=== PATIENT | female | born 1995 | race American Indian/Alaskan Native ===

== ENCOUNTER 2018-11-04 23:56 | Emergency (ER) | payer OTHER ==
--- NOTE | 2018-11-05 04:03 | XRay Report ---
PROCEDURE: XR CHEST ROUTINE 2V TECHNIQUE: PA and lateral views of the chest were submitted. HISTORY: chestpain COMPARISONS: None FINDINGS: The lungs are clear. The heart size and vascularity appear normal. The bones and soft tissues appear normal. IMPRESSION: Within normal limits.. This document is electronically signed by Darius Christina MD., November 05 2018 04:01:00 AM ET
[2018-11-05] MEDS ORDERED: IBUPROFEN PO ONE (04:09)
--- NOTE | 2018-11-05 04:13 | Emergency Department Report ---
ED General Adult HPI - General Chief complaint: Chest Pain Stated complaint: CHEST PAIN, NUMBNESS LEFT ARM Time Seen by Provider: 11/05/18 03:53 Source: patient Mode of arrival: Ambulatory Limitations: No Limitations - History of Present Illness Initial comments: 22-year-old -[place]i female presents to the emergency room for intermittent chest pain in left arm numbness and tingling. Patient reports that laying on the left arm makes it feel numb. Patient denies any trauma. She reports aspirin makes it better and nothing makes it worse. She denies any cough. Ports that the pain is sharp and comes and goes. She denies any smoking no wheeze no drugs alcohol use occasionally. No past medical history currently takes no medications on a daily basis and has no known drug allergies -: week(s) (1) Location: chest, left Radiation: distal Severity scale (0 -10): 8 Quality: sharp Consistency: intermittent Improves with: medication (asa) Associated Symptoms: denies: cough, diaphoresis, fever/chills, nausea/vomiting Treatments Prior to Arrival: none - Related Data Previous Rx's Medication Instructions Recorded Last Taken Type Nitrofurantoin [place]/M-Cryst 100 mg PO Q12HR #14 capsule 10/16/16 Unknown Rx [Macrobid CAP] Ibuprofen [Motrin 600 MG tab] 600 mg PO Q8H #21 tablet 11/05/18 Unknown Rx Allergies Allergy/AdvReac Type Severity Reaction Status Date / Time No Known Allergies Allergy Unverified 10/16/16 17:30 ED Review of Systems ROS: Stated complaint: CHEST PAIN, NUMBNESS LEFT ARM Other details as noted in HPI ED Past Medical Hx - Past Medical History Previous Medical History?: No - Surgical History Past Surgical History?: Yes - Social History Smoking Status: Never Smoker Substance Use Type: None - Medications Home Medications: Home Medications Medication Instructions Recorded Confirmed Last Taken Type Nitrofurantoin [place]/M-Cryst 100 mg PO Q12HR #14 capsule 10/16/16 Unknown Rx [Macrobid CAP] Ibuprofen [Motrin 600 MG tab] 600 mg PO Q8H #21 tablet 11/05/18 Unknown Rx ED Physical Exam - General Limitations: No Limitations General appearance: alert, in no apparent distress - Head Head exam: Present: atraumatic, normocephalic - Eye Eye exam: Present: normal appearance - ENT ENT exam: Present: mucous membranes moist - Neck Neck exam: Present: normal inspection - Respiratory Respiratory exam: Present: normal lung sounds bilaterally, chest wall tenderness. Absent: respiratory distress - GI/Abdominal GI/Abdominal exam: Present: soft, normal bowel sounds - Neurological Exam Neurological exam: Present: alert, oriented X3 - Psychiatric Psychiatric exam: Present: normal affect, normal mood - Skin Skin exam: Present: warm, dry, intact, normal color. Absent: rash ED Course Vital Signs 11/05/18 11/05/18 00:00 04:59 Temperature 98.2 F 98.1 F Pulse Rate 101 H 80 Respiratory 18 18 Rate Blood Pressure 116/77 Blood Pressure 132/75 [Left] O2 Sat by Pulse 96 98 Oximetry ED Medical Decision Making - Radiology Data Radiology results: report reviewed Patient: CADEN TIJERINA MR#: [id number] : 1995 Acct:[id number] Age/Sex: 22 / F ADM Date: 11/04/18 Loc: ED Attending Dr: Ordering Physician: ED MD MARVA Date of Service: 11/05/18 Procedure(s): XR chest routine 2V Accession Number(s): [id number] cc: ED MD MARVA Fluoro Time In Minutes: PROCEDURE: XR CHEST ROUTINE 2V TECHNIQUE: PA and lateral views of the chest were submitted. HISTORY: chestpain COMPARISONS: None FINDINGS: The lungs are clear. The heart size and vascularity appear normal. The bones and soft tissues appear normal. IMPRESSION: Within normal limits.. This document is electronically signed by Darius Christina MD., November 05 2018 04:01:00 AM ET Transcribed By: RB Dictated By: DARIUS CHRISTINA MD Electronically Authenticated By: DARIUS CHRISTINA MD Signed Date/Time: 11/05/18 0403 DD/ 035 TD/TT: 11/05/18356 Critical care attestation.: If time is entered above; I have spent that time in minutes in the direct care of this critically ill patient, excluding procedure time. ED Disposition Clinical Impression: Tenderness of chest wall Disposition: DC-01 TO HOME OR SELFCARE Is pt being admited?: No Does the pt Need Aspirin: No Condition: Stable Instructions: Chest Pain (ED) Additional Instructions: Please take ibuprofen for pain management. Please follow-up with the primary care provider I have listed several below for your convenience. Prescriptions: Ibuprofen [Motrin 600 MG tab] 600 mg PO Q8H #21 tablet Referrals: PRIMARY CARE, [Primary Care Provider] - 3-[address] [facility] [Provider Group] - 3-5 Days [facility] [Outside] - 3-5 Days
[2018-11-05 05:00] VITALS: BP 132/75
== END 2018-11-05 05:00 | disposition home or self-care (01) ==
LOC: ED 23:56
DX: R07.89 Other chest pain (principal)
CPT/HCPCS: 71046; 93005; 93010; 99283

== ENCOUNTER 2019-02-03 13:16 | Emergency (ER) | payer OTHER ==
[2019-02-03 13:41] VITALS: BP 116/71
--- NOTE | 2019-02-03 13:49 | Emergency Department Report ---
ED ENT HPI - General Chief complaint: Dental/Oral Stated complaint: TOOTHACHE Time Seen by Provider: 02/03/19 13:44 Source: patient Mode of arrival: Ambulatory Limitations: No Limitations - History of Present Illness Initial comments: 23 y/o female comes in for 2 day history of tooth pain. She has been taking Tylenol for pain. Has a dental appointment on Tuesday. She is aware that she has a bad tooth. MD complaint: tooth pain Onset/Timin -: days(s) Location: tooth # Severity scale (0 -10): 10 Quality: aching, sharp Consistency: constant Improves with: none Worsens with: medication Associated Symptoms: gum swelling, toothache. denies: fever - Related Data Previous Rx's Medication Instructions Recorded Last Taken Type Nitrofurantoin [place]/M-Cryst 100 mg PO Q12HR #14 capsule 10/16/16 Unknown Rx [Macrobid CAP] Amoxicillin [Trimox CAP] 500 mg PO Q8H #30 capsule 02/03/19 Unknown Rx Ibuprofen [Motrin 600 MG tab] 600 mg PO Q8H #21 tablet 02/03/19 Unknown Rx Allergies Allergy/AdvReac Type Severity Reaction Status Date / Time No Known Allergies Allergy Unverified 10/16/16 17:30 ED Dental HPI - General Chief complaint: Dental/Oral Stated complaint: TOOTHACHE Time Seen by Provider: 02/03/19 13:44 Source: patient Mode of arrival: Ambulatory Limitations: No Limitations - Related Data Previous Rx's Medication Instructions Recorded Last Taken Type Nitrofurantoin [place]/M-Cryst 100 mg PO Q12HR #14 capsule 10/16/16 Unknown Rx [Macrobid CAP] Amoxicillin [Trimox CAP] 500 mg PO Q8H #30 capsule 02/03/19 Unknown Rx Ibuprofen [Motrin 600 MG tab] 600 mg PO Q8H #21 tablet 02/03/19 Unknown Rx Allergies Allergy/AdvReac Type Severity Reaction Status Date / Time No Known Allergies Allergy Unverified 10/16/16 17:30 ED Review of Systems ROS: Stated complaint: TOOTHACHE Other details as noted in HPI Comment: All other systems reviewed and negative ED Past Medical Hx - Past Medical History Previous Medical History?: No - Surgical History Past Surgical History?: No - Social History Smoking Status: Never Smoker - Medications Home Medications: Home Medications Medication Instructions Recorded Confirmed Last Taken Type Nitrofurantoin [place]/M-Cryst 100 mg PO Q12HR #14 capsule 10/16/16 Unknown Rx [Macrobid CAP] Amoxicillin [Trimox CAP] 500 mg PO Q8H #30 capsule 02/03/19 Unknown Rx Ibuprofen [Motrin 600 MG tab] 600 mg PO Q8H #21 tablet 02/03/19 Unknown Rx ED Physical Exam - General Limitations: No Limitations General appearance: alert, in no apparent distress - Head Head exam: Present: atraumatic, normocephalic ED Course Vital Signs 02/03/19 13:40 Temperature 98.3 F Pulse Rate 91 H Respiratory 18 Rate Blood Pressure 116/71 O2 Sat by Pulse 97 Oximetry Critical care attestation.: If time is entered above; I have spent that time in minutes in the direct care of this critically ill patient, excluding procedure time. ED Disposition Clinical Impression: Pain due to dental caries Disposition: TO HOME OR SELFCARE Is pt being admited?: No Does the pt Need Aspirin: No Condition: Stable Instructions: Toothache (ED), Dental Caries (ED) Additional Instructions: complete antibiotic as prescribed pain medication as needed. Keep your appointment to your Dentist on Tuesday. Prescriptions: Ibuprofen [Motrin 600 MG tab] 600 mg PO Q8H #21 tablet Amoxicillin [Trimox CAP] 500 mg PO Q8H #30 capsule Referrals: [facility] [Outside] - 3-5 Days [facility] [Outside] - 3-5 Days [facility] [Outside] - 3-5 Days
== END 2019-02-03 13:58 | disposition home or self-care (01) ==
LOC: ED 13:16
DX: K02.9 Dental caries, unspecified (principal)
CPT/HCPCS: 99282

== ENCOUNTER 2021-08-10 14:19 | Emergency (ER) | payer SELFPAY ==
--- NOTE | 2021-08-10 17:15 | Emergency Department Report ---
ED ENT HPI - General Chief complaint: Sore Throat Stated complaint: SORE THROAT Time Seen by Provider: 08/10/21 16:19 Source: patient Mode of arrival: Ambulatory Limitations: No Limitations - History of Present Illness Initial comments: Patient is a 25-year-old female presents emergency room complaints of a sore throat that began on 08/02/2021. She reports that the discomfort in her throat worsened on 08/06/2021. She has associated pain with swallowing. She is able to tolerate liquids and her secretions. She denies any fever, nausea, vomiting, diarrhea, cough, shortness of breath. She denies any known sick contacts or recent travel. No past medical history. No allergies to medications. - Related Data Previous Rx's Medication Instructions Recorded Last Taken Type Nitrofurantoin [place]/M-Cryst 100 mg PO Q12HR #14 capsule 10/16/16 Unknown Rx [Macrobid CAP] Amoxicillin [Trimox CAP] 500 mg PO Q8H #30 capsule 02/03/19 Unknown Rx Ibuprofen [Motrin 600 MG tab] 600 mg PO Q8H #21 tablet 02/03/19 Unknown Rx Penicillin V Potassium 500 mg PO Q6HR #40 tablet 04/10/20 Unknown Rx traMADoL [Ultram 50 MG tab] 50 mg PO Q6HR PRN #12 tablet 04/10/20 Unknown Rx Naproxen 375 mg PO BID PRN #14 tablet 08/10/21 Unknown Rx Nystas/Diphen/Xyl Visc/Mylanta 30 ml MM Q4H PRN #300 ml 08/10/21 Unknown Rx [Magic Mouthwash] Prednisone [predniSONE 10 mg 10 mg PO .TAPER #1 tab.ds.pk 08/10/21 Unknown Rx (6-Day Pack, 21 Tabs)] Allergies Allergy/AdvReac Type Severity Reaction Status Date / Time No Known Allergies Allergy Unverified 10/16/16 17:30 ED Dental HPI - General Chief complaint: Sore Throat Stated complaint: SORE THROAT Time Seen by Provider: 08/10/21 16:19 Source: patient Mode of arrival: Ambulatory Limitations: No Limitations - Related Data Previous Rx's Medication Instructions Recorded Last Taken Type Nitrofurantoin [place]/M-Cryst 100 mg PO Q12HR #14 capsule 10/16/16 Unknown Rx [Macrobid CAP] Amoxicillin [Trimox CAP] 500 mg PO Q8H #30 capsule 02/03/19 Unknown Rx Ibuprofen [Motrin 600 MG tab] 600 mg PO Q8H #21 tablet 02/03/19 Unknown Rx Penicillin V Potassium 500 mg PO Q6HR #40 tablet 04/10/20 Unknown Rx traMADoL [Ultram 50 MG tab] 50 mg PO Q6HR PRN #12 tablet 04/10/20 Unknown Rx Naproxen 375 mg PO BID PRN #14 tablet 08/10/21 Unknown Rx Nystas/Diphen/Xyl Visc/Mylanta 30 ml MM Q4H PRN #300 ml 08/10/21 Unknown Rx [Magic Mouthwash] Prednisone [predniSONE 10 mg 10 mg PO .TAPER #1 tab.ds.pk 08/10/21 Unknown Rx (6-Day Pack, 21 Tabs)] Allergies Allergy/AdvReac Type Severity Reaction Status Date / Time No Known Allergies Allergy Unverified 10/16/16 17:30 ED Review of Systems ROS: Stated complaint: SORE THROAT Other details as noted in HPI Comment: All other systems reviewed and negative ED Past Medical Hx - Social History Smoking Status: Never Smoker Substance Use Type: Alcohol - Medications Home Medications: Home Medications Medication Instructions Recorded Confirmed Last Taken Type Nitrofurantoin [place]/M-Cryst 100 mg PO Q12HR #14 capsule 10/16/16 Unknown Rx [Macrobid CAP] Amoxicillin [Trimox CAP] 500 mg PO Q8H #30 capsule 02/03/19 Unknown Rx Ibuprofen [Motrin 600 MG tab] 600 mg PO Q8H #21 tablet 02/03/19 Unknown Rx Penicillin V Potassium 500 mg PO Q6HR #40 tablet 04/10/20 Unknown Rx traMADoL [Ultram 50 MG tab] 50 mg PO Q6HR PRN #12 tablet 04/10/20 Unknown Rx Naproxen 375 mg PO BID PRN #14 tablet 08/10/21 Unknown Rx Nystas/Diphen/Xyl Visc/Mylanta 30 ml MM Q4H PRN #300 ml 08/10/21 Unknown Rx [Magic Mouthwash] Prednisone [predniSONE 10 mg 10 mg PO .TAPER #1 tab.ds.pk 08/10/21 Unknown Rx (6-Day Pack, 21 Tabs)] ED Physical Exam - General Limitations: No Limitations General appearance: alert, in no apparent distress - Head Head exam: Present: atraumatic, normocephalic - Eye Eye exam: Present: normal appearance - ENT ENT exam: Present: mucous membranes moist, other (mild posterior oropharynx erythema, no tonsillar hypertrophy or exudates, uvula is midline, no uvular edema or deviation, no trismus, no tongue elevation, no muffled voice, no submandibular edema) ED Course Vital Signs 08/10/21 08/10/21 15:25 17:56 Temperature 99.6 F 98.9 F Pulse Rate 120 H 114 H Respiratory 15 18 Rate Blood Pressure 118/75 Blood Pressure 126/84 [Right] O2 Sat by Pulse 100 100 Oximetry ED Medical Decision Making - Lab Data Vital Signs 08/10/21 08/10/21 15:25 17:56 Temperature 99.6 F 98.9 F Pulse Rate 120 H 114 H Respiratory 15 18 Rate Blood Pressure 118/75 Blood Pressure 126/84 [Right] O2 Sat by Pulse 100 100 Oximetry - Medical Decision Making Patient is a 25-year-old female presents emergency room complaints of a sore throat that began on 08/02/2021. She reports that the discomfort in her throat worsened on 08/06/2021. She has associated pain with swallowing. She is able to tolerate liquids and her secretions. She denies any fever, nausea, vomiting, diarrhea, cough, shortness of breath. She denies any known sick contacts or recent travel. No past medical history. No allergies to medications. on exam: mild posterior oropharynx erythema, no tonsillar hypertrophy or exudates, uvula is midline, no uvular edema or deviation, no trismus, no tongue elevation, no muffled voice, no submandibular edema. Rapid strep was negative. No clinical signs of peritonsillar abscess at this time. Symptoms could be related to viral pharyngitis. Patient given prescription for medications. Advised patient please take medication as prescribed. Increase your water intake. Gargle with warm salt water. Throw away your toothbrush and obtain a new toothbrush. Follow-up with your primary care doctor for reexamination. Return to emergency room for any new or worsening symptoms. Critical care attestation.: If time is entered above; I have spent that time in minutes in the direct care of this critically ill patient, excluding procedure time. ED Disposition Clinical Impression: Pharyngitis Qualifiers: Pharyngitis/tonsillitis etiology: unspecified etiology Qualified Code(s): J02.9 - Acute pharyngitis, unspecified Disposition: 01 HOME / SELF CARE / HOMELESS Is pt being admited?: No Does the pt Need Aspirin: No Condition: Stable Instructions: Pharyngitis, [id number] Additional Instructions: patient please take medication as prescribed. Increase your water intake. Gargle with warm salt water. Throw away your toothbrush and obtain a new toothbrush. Follow-up with your primary care doctor for reexamination. Return to emergency room for any new or worsening symptoms. Prescriptions: Nystas/Diphen/Xyl Visc/Mylanta [Magic Mouthwash] 30 ml MM Q4H PRN #300 ml PRN Reason: sore throat Naproxen 375 mg PO BID PRN #14 tablet PRN Reason: pain Prednisone [predniSONE 10 mg (6-Day Pack, 21 Tabs)] 10 mg PO .TAPER #1 tab.ds.pk Referrals: ZO GALLO MD [Primary Care Provider] - 3-5 Days ARLEEN CARABALLO MD [Staff Physician] - 3-5 Days [facility] [Provider Group] - 3-5 Days Time of Disposition: 17:14 Print Language: SLOVENIAN
[2021-08-10 17:58] VITALS: BP 126/84
== END 2021-08-10 17:58 | disposition home or self-care (01) ==
LOC: ED 14:19
DX: J02.9 Acute pharyngitis, unspecified (principal); Z79.899 Other long term (current) drug therapy
CPT/HCPCS: 87116; 87430; 99283